=== PATIENT | female | born 1935 | race Caucasian/White ===

== ENCOUNTER 2019-07-17 16:17 | Inpatient (IN) | payer OTHER, MEDICAID ==
[~2019-07-17] VITALS: Ht 152.4 cm; Wt 41.7 kg
[2019-07-17 16:45] VITALS: BP_SYST 118
--- NOTE | 2019-07-17 16:45 | NUR ---
PATIENT TO ER #2 AND PLACED ON RACE CAR MECHANIC, SAO2, ABP
--- NOTE | 2019-07-17 17:00 | NUR ---
PT CAME TO ER AFTER CONCERNS OF HER NOT EATING, PT RESTING IN [place] ON MONITOR AT THIS TIME.
--- NOTE | 2019-07-17 17:10 | NUR ---
ER at bedside examining patient.
--- NOTE | 2019-07-17 17:20 | NUR ---
ERMD EVALUATION; ORDERS EXECUTED
[2019-07-17] MEDS ORDERED: NS 250 ML IV ONE (17:30)
[2019-07-17 18:18] LABS: BASOPHILS % (AUTO) 0.7 % (0.0-2.0); EOSINOPHILS # (AUTO) 0.1 K/uL (0.0-0.4); EOSINOPHILS % (AUTO) 2.1 % (0.0-4.0); HEMATOCRIT 38.4 % (36-48); HEMOGLOBIN 12.6 g/dL (12.0-16.0); LYMPHOCYTES # (AUTO) 1.2 K/uL (1.0-5.5); LYMPHOCYTES % (AUTO) 19.3 % (20.5-51.5); MEAN CORPUSCULAR HEMOGLOBIN 30 pg (27-31); MEAN CORPUSCULAR HGB CONC 33 % (32-36); MEAN CORPUSCULAR VOLUME 92 fL (79.0-98.0); MONOCYTES # (AUTO) 0.6 K/uL (0.0-1.0); MONOCYTES % (AUTO) 10.6 % (1.7-9.3); NEUTROPHILS # (AUTO) 4.1 K/uL (1.8-7.7); NEUTROPHILS % (AUTO) 67.3 % (40.0-70.0); PLATELET COUNT (AUTO) 341 K/uL (130-430); RED BLOOD CELL COUNT(AUTO) 4.18 MIL/uL (4.2-6.2); RED CELL DISTRIBUTION WIDTH 16.6 % (9.0-15.0); WHITE BLOOD COUNT (AUTO) 6.2 K/uL (4.8-10.8)
[2019-07-17 18:28] LABS: ANION GAP 8 (5-15); CALCIUM 8.8 mg/dL (8.4-11.0); CHLORIDE 101 mmol/L (98-107); CREATININE 0.57 mg/dL (0.55-1.30); GLUCOSE 96 mg/dL (70-99); POTASSIUM 3.8 mmol/L (3.5-5.1); SODIUM SERUM 138 mmol/L (136-145); UREA NITROGEN, BLOOD 18 mg/dL (8-21)
[2019-07-17 18:33] LABS: ALANINE AMINOTRANSFERASE 11 U/L (12-78); ALBUMIN 2.5 g/dL (3.4-4.8); ASPARTATE AMINOTRANSFERASE 18 U/L (10-37); TOTAL BILIRUBIN 0.4 mg/dL (0.0-1.0)
[2019-07-17 18:42] LABS: INR 1.1 (0.8-1.2); PROTHROMBIN TIME 10.8 SECS (9.5-12.5)
[2019-07-17] MEDS ORDERED: PIPERACILLIN/TAZO 3.375 GM in NS 50 ML IV ONE (19:00)
--- NOTE | 2019-07-17 19:35 | NUR ---
Pt lying on left side, alert, responsive, AAOx1. Respirations even and non-labored. Denies c/o pain or discomfort, no needs verbalized. Pt has 20 GA PIV LAC, patent and secure. On ekg monitor tech with VSSODALYS.
--- NOTE | 2019-07-17 20:00 | NUR ---
Dr. Andrea at bedside to assess pt.
[2019-07-17 20:17] LABS: BILIRUBIN,URINE 1+ (NEGATIVE); BLOOD, URINE 3+ (NEGATIVE); COLOR,URINE YELLOW (YELLOW); GLUCOSE,URINE NEGATIVE (NEGATIVE); KETONES,URINE NEGATIVE (NEGATIVE); LEUKOCYTE ESTERASE ,URINE 1+ (NEGATIVE); NITRITE, URINE NEGATIVE (NEGATIVE); PROTEIN URINE NEGATIVE (NEGATIVE)
[2019-07-17 20:19] LABS: CLARITY/URINE SLIGHTLY HAZY (CLEAR)
[2019-07-17 20:27] LABS: RBC,URINE 50-80 /HPF (0-3)
[2019-07-17 20:28] LABS: BACTERIA,URINE MODERATE /HPF (None Seen); MUCUS,URINE 3+ /LPF (None Seen)
[2019-07-17] MEDS ORDERED: cefTRIAXone 1 GM in D5W 50 ML IV ONE (21:30)
--- NOTE | 2019-07-17 21:30 | NUR ---
Pt resting quietly, even and non-labored respirations, NAD.
[2019-07-17] MEDS ORDERED: KCL 20 mEq in D5/0.45NS 1000mL 1,000 ML IV ONE ×2 (22:00→23:58)
[2019-07-17] MEDS ORDERED: cefTRIAXone 1 GM IVPB PREMIX 50 ML IV ONE (22:04)
[2019-07-17] MEDS ORDERED: PIPERACILLIN/TAZOBACTAM 3.375 GM/VIAL (ZOSYN) IV ONE (22:05)
--- NOTE | 2019-07-17 22:37 | NUR ---
Patient will be admitted to care of Dr. Oropeza. Admitted to Med/Surg unit. Will go to room 104B. Belongings list completed. Complete and up to date summary report printed. Phone report called to LAYA Carrington.
--- NOTE | 2019-07-17 22:51 | NUR ---
ADMISSION: The patient, TOR ECKERT, 83 y/o, F admitted by DEMETRICE NAGEL MD, was placed in room 104B, given call light and oriented to unit procedures and contact persons.
[2019-07-17 23:28] VITALS: BP_SYST 113
--- NOTE | 2019-07-17 23:44 | NUR ---
Dr. Oropeza rounds Dr. Oropeza is here to see patient and is placing orders.
[2019-07-17] MEDS ORDERED: ACETAMINOPHEN 325 MG TABLET PO PRN (23:45)
[2019-07-17] MEDS: KCL 20 mEq in D5/0.45NS 1000mL 1,000 ML IV SCH (23:59)
--- NOTE | 2019-07-18 00:12 | NUR ---
IVF IVF hung and infusing as ordered at 75 ml/hr; infusing well and patient tolerating.
[2019-07-18 01:22] VITALS: BP_SYST 112
--- NOTE | 2019-07-18 04:29 | NUR ---
RN rounds Patient is awake, resting calm and talking to self. No distress noted. She was repositioned and turned and was cooperative. IVF infusing well. Safety precautions in place and call light w/in reach.
[2019-07-18] MEDS ORDERED: FOLI0.8T42 PO (05:41)
[2019-07-18] MEDS ORDERED: MEMA10TA PO (05:41)
[2019-07-18] MEDS ORDERED: LACT10SO6 PO (05:41)
[2019-07-18] MEDS ORDERED: DONE10TA44 PO (05:41)
[2019-07-18] MEDS ORDERED: OSCD500 PO (05:41)
--- NOTE | 2019-07-18 06:30 | NUR ---
closing note Patient is awake and has pulled out her IV. She had a bowel movement and was provided with pericare, repositioned and turned. No distress noted. Safety precautions in place and call light near. Will endorse car.
--- NOTE | 2019-07-18 07:35 | NUR ---
Note valdezone in EDM - 07/18/19 at 0828 by ALAN Pt lying on left side, alert, responsive, AAOx1. Respirations even and non-labored. Denies c/o pain or discomfort, no needs verbalized. Pt has 20 GA PIV LAC, patent and secure. On personnel monitor with VSSNAD.
[2019-07-18 08:50] VITALS: BP_SYST 112
[2019-07-18] MEDS: CEFEPIME 1 GM in D5W 50 ML IV SCH ×2 (10:02→23:00)
[2019-07-18] MEDS: NEPHROVITE, (FOLIC ACID/VITAMIN B COMP W-C 1 TAB) PO SCH (10:03)
[2019-07-18] MEDS: CALCIUM CARBONATE/VITAMIN D3 1 TAB TABLET PO SCH (10:03)
[2019-07-18] MEDS: MEMANTINE HCL 5 MG TABLET PO SCH ×2 (10:03→23:00)
[2019-07-18] MEDS: ENOXAPARIN SODIUM 40 MG/0.4 ML SYRINGE SUBCUT SCH (10:04)
--- NOTE | 2019-07-18 11:10 | NUR ---
Nutrition Update Shiv Scale 14 noted. Pt admitted for FTT. Diet: regular, pureed BMI: 18.1 kg/m2 RD to follow per nutrition care standards.
[2019-07-18 12:31] VITALS: BP_SYST 115
[2019-07-18] MEDS: KCL 20 mEq in D5/0.45NS 1000mL 1,000 ML IV SCH (13:05)
[2019-07-18 17:30] VITALS: BP_SYST 118
[2019-07-18 20:30] VITALS: BP_SYST 143
--- NOTE | 2019-07-18 20:30 | NUR ---
Opening notes Pt awake, confused. VSS afebrile. No s/s distress noted. IVF infusing at ordered rate R. FA 22 no s/s infiltration. Virgil wrists restraints on. Call light within reach. Safety maintained. To monitored.
--- NOTE | 2019-07-18 22:45 | NUR ---
Rounds Pt awake, confused talking to herself. No s/s distress noted. IVF infusing at ordered rate R. FA no s/s infiltration. Safety maintained. Call light within reach. To monitor.
[2019-07-18] MEDS: DONEPEZIL HCL 5 MG TABLET (ARICEPT) PO SCH (23:00)
[2019-07-19 02:18] VITALS: BP_SYST 146
[2019-07-19] MEDS: KCL 20 mEq in D5/0.45NS 1000mL 1,000 ML IV SCH ×2 (02:25→17:37)
--- NOTE | 2019-07-19 02:30 | NUR ---
Rounds Pt awake, talking to herself, no s/s distress noted. IVF infusing at ordered rate R. FA 22 no s/s infiltration. Call light within reach. To monitor.
--- NOTE | 2019-07-19 05:20 | NUR ---
Pericare Pt incontinent of semi loose brown bowel. Pericare provided. Protective barrier cream applied to redness in periarea. Pt repositioned. Virgil wrists restraints off at this time. To monitor.
--- NOTE | 2019-07-19 06:30 | NUR ---
Closing notes Pt awake, no s/s distress noted. IVF infusing R. FA 22G no s/s distress noted. Virgil wrists restraints on. Call light within reach. Safety maintained. Bed low, locked, siderails up, alarm on. To endorse to AM nurse.
[2019-07-19 07:21] LABS: BASOPHILS % (AUTO) 1.2 % (0.0-2.0); EOSINOPHILS # (AUTO) 0.1 K/uL (0.0-0.4); EOSINOPHILS % (AUTO) 3.1 % (0.0-4.0); HEMATOCRIT 33.5 % (36-48); LYMPHOCYTES # (AUTO) 1.3 K/uL (1.0-5.5); LYMPHOCYTES % (AUTO) 33.5 % (20.5-51.5); MEAN CORPUSCULAR HEMOGLOBIN 30 pg (27-31); MEAN CORPUSCULAR HGB CONC 33 % (32-36); MEAN CORPUSCULAR VOLUME 92 fL (79.0-98.0); MONOCYTES # (AUTO) 0.6 K/uL (0.0-1.0); MONOCYTES % (AUTO) 15.5 % (1.7-9.3); NEUTROPHILS # (AUTO) 1.7 K/uL (1.8-7.7); PLATELET COUNT (AUTO) 323 K/uL (130-430); RED BLOOD CELL COUNT(AUTO) 3.65 MIL/uL (4.2-6.2); RED CELL DISTRIBUTION WIDTH 16.1 % (9.0-15.0); WHITE BLOOD COUNT (AUTO) 3.7 K/uL (4.8-10.8)
[2019-07-19 07:30] LABS: ANION GAP 8 (5-15); CALCIUM 8.7 mg/dL (8.4-11.0); CHLORIDE 98 mmol/L (98-107); CREATININE 0.47 mg/dL (0.55-1.30); GLUCOSE 87 mg/dL (70-99); POTASSIUM 3.3 mmol/L (3.5-5.1); SODIUM SERUM 132 mmol/L (136-145); UREA NITROGEN, BLOOD 9 mg/dL (8-21)
[2019-07-19 08:00] VITALS: BP_SYST 148
--- NOTE | 2019-07-19 08:00 | NUR ---
Note Pt asleep and has wrist restraints on bilaterally. IV in right forearm intact and patent infusing IVF's well. Pt is a feeder of pureed diet. No SOB/resp distress or pain/discomfort noted at this time. Call light within reach.
[2019-07-19] MEDS: NEPHROVITE, (FOLIC ACID/VITAMIN B COMP W-C 1 TAB) PO SCH (08:31)
[2019-07-19] MEDS: CALCIUM CARBONATE/VITAMIN D3 1 TAB TABLET PO SCH (08:31)
[2019-07-19] MEDS: MEMANTINE HCL 5 MG TABLET PO SCH ×2 (08:31→22:04)
[2019-07-19] MEDS: CEFEPIME 1 GM in D5W 50 ML IV SCH ×2 (08:31→22:05)
[2019-07-19] MEDS: ENOXAPARIN SODIUM 40 MG/0.4 ML SYRINGE SUBCUT SCH (08:32)
--- NOTE | 2019-07-19 08:58 | NUR ---
DC Planning: Updated pt status to [facility] /[place] Ker[place] this am # [phone]: stated the pt does not have any family but one friend. All contact or other request should be reported to him for decision/authorization. He requested a notification when transferring pt back to [facility].
[2019-07-19 09:08] LABS: NEUTROPHILS % (AUTO) 46.7 % (40.0-70.0)
[2019-07-19 12:00] VITALS: BP_SYST 138
--- NOTE | 2019-07-19 12:00 | NUR ---
Note Pt resting in bed and has no needs at this time. Pt only awakens when she is fed her meals by LICENSED MORTICIAN. No needs noted at this time. Call light within reach.
--- NOTE | 2019-07-19 16:00 | NUR ---
Note Pt was given meals and turned q2' by LIEUTENANT FIREFIGHTER all shift. Hygiene and partial bed bath was given by LIEUTENANT FIREFIGHTER. Call light within reach.
--- NOTE | 2019-07-19 16:27 | NUR ---
Dietitian Recommendations * Recommend continuing pureed diet (ONS Ensure Enlive TID comes standard w/ this diet; provides 1050 kcal/day, 60 gm protein/day) * Encourage increase PO intakes LP, RD Please refer to Nutrition Assessment for details. Addendum: 07/19/19 at [address] Amended: Links added.
[2019-07-19 16:37] VITALS: BP_SYST 135
--- NOTE | 2019-07-19 17:10 | NUR ---
Kikr mullins in ED - 07/19/19 at 1911 by SDEDDW TIERRA Rose at bedside examining patient.
--- NOTE | 2019-07-19 18:30 | NUR ---
Note Pt was seen and assessed by Dr Oropeza at bedside. Pt was fed her dinner by TALENT MANAGEMENT SPECIALIST this evening. No SOB/resp distress or pain/discomfort noted at this time. Pt was checked on q1' and PRN all shift for needs and care. Pt's restraints are on bilaterally. IV in right forearm intact and patent infusing IVF's well. No needs noted at this time. Call light within reach.
--- NOTE | 2019-07-19 19:40 | NUR ---
RECEIVED REPORT FROM 7 AM RN. PT IN BED ASLEEP IN NAD, EASILY AROUSAL TO TOUCH. IVF INFUSING, CLOSE TO NURSES STATION.
[2019-07-19 20:00] VITALS: BP_SYST 135
[2019-07-19] MEDS: DONEPEZIL HCL 5 MG TABLET (ARICEPT) PO SCH (22:04)
--- NOTE | 2019-07-19 23:00 | NUR ---
MED PASS DONE, W/ HOB UP AT 45 DEGREES, PT TOLERATED PO MEDS WELL CRUSHED AND GIVEN W/ VANILLA PUDDING. LAYING IN BED PULLING ON CLOTHES WITH EYES CLOSED. RESTRAINTS IN USE A SAFETY DEVICE. WILL CONT TO MONITOR.
[2019-07-20 00:04] VITALS: BP_SYST 123
--- NOTE | 2019-07-20 03:00 | NUR ---
PATIENT MONITORED ON ROUNDS FOR SAFETY. RUSS CARE DONE. COMFORT MEASURES USED, SAFETY ASSESSED AND MAINTAINED. WILL CONT TO MONITOR FOR CHANGES/ SAFETY.
--- NOTE | 2019-07-20 06:30 | NUR ---
AM MED PASS DONE. PT EASY TO AROUSE, NO S/S OF DISTRESS NOTED. TOLERATED AM CARE, AND PARTIAL BATH WELL W/ ASSIST OF TWO. REPOSITIONED, MADE COMFORTABLE.
--- NOTE | 2019-07-20 07:45 | NUR ---
REPORT TO ONCOMING 7 AM RN. PT ASLEEP, NAD NOTED.
[2019-07-20 08:00] VITALS: BP_SYST 138
[2019-07-20] MEDS: ENOXAPARIN SODIUM 40 MG/0.4 ML SYRINGE SUBCUT SCH (09:00)
[2019-07-20] MEDS: CALCIUM CARBONATE/VITAMIN D3 1 TAB TABLET PO SCH (11:03)
[2019-07-20] MEDS: NEPHROVITE, (FOLIC ACID/VITAMIN B COMP W-C 1 TAB) PO SCH (11:03)
[2019-07-20] MEDS: MEMANTINE HCL 5 MG TABLET PO SCH ×2 (11:05→22:20)
[2019-07-20] MEDS: KCL 20 mEq in D5/0.45NS 1000mL 1,000 ML IV SCH (11:09)
[2019-07-20] MEDS: CEFEPIME 1 GM in D5W 50 ML IV SCH ×2 (11:10→22:20)
[2019-07-20 12:15] VITALS: BP_SYST 122
[2019-07-20 16:10] VITALS: BP_SYST 133
--- NOTE | 2019-07-20 19:35 | NUR ---
Pt was received in bed fully awake and oriented to her name only. No c/o pain or discomfort and no acute distress noted. IVF of D5 1/2NS W/ 20Meq KCL is infusing well in RFA at 75ml/hr without any signs of infiltration. Bilateral soft wrist restraints are on and no circulatory impairment noted. Fall and safety precautions are in place.
[2019-07-20 20:00] VITALS: BP_SYST 110
--- NOTE | 2019-07-20 21:30 | NUR ---
No acute distress noted. IVF is infusing well in RFA. Fall and safety precautions are in place.
[2019-07-20] MEDS: DONEPEZIL HCL 5 MG TABLET (ARICEPT) PO SCH (22:21)
--- NOTE | 2019-07-20 23:00 | NUR ---
Pt remains confused and disoriented. IVF is infusing well in RFA. Bilateral soft wrist restraints are in place and no circulatory impairment noted.
[2019-07-20 23:35] VITALS: BP_SYST 117
--- NOTE | 2019-07-21 01:00 | NUR ---
Pt is sleeping without any respiratory distress noted. IVF is infusing well in RFA. Fall and safety precautions are in place.
[2019-07-21] MEDS: KCL 20 mEq in D5/0.45NS 1000mL 1,000 ML IV SCH ×2 (02:28→11:30)
--- NOTE | 2019-07-21 03:00 | NUR ---
Pt is resting without any distress noted. Fall and safety precautions are in place. IVF is infusing well in RFA.
--- NOTE | 2019-07-21 05:00 | NUR ---
Pt is resting comfortably in bed. IVF is infusing well in RFA and no signs of infiltration noted at the site. Fall and safety precautions are in place.
[2019-07-21 07:13] LABS: BASOPHILS % (AUTO) 0.8 % (0.0-2.0); EOSINOPHILS # (AUTO) 0.1 K/uL (0.0-0.4); EOSINOPHILS % (AUTO) 3.6 % (0.0-4.0); HEMATOCRIT 34.9 % (36-48); HEMOGLOBIN 11.5 g/dL (12.0-16.0); MEAN CORPUSCULAR HEMOGLOBIN 30 pg (27-31); MEAN CORPUSCULAR HGB CONC 33 % (32-36); MEAN CORPUSCULAR VOLUME 92 fL (79.0-98.0); MONOCYTES # (AUTO) 0.6 K/uL (0.0-1.0); MONOCYTES % (AUTO) 15.9 % (1.7-9.3); NEUTROPHILS # (AUTO) 2.1 K/uL (1.8-7.7); NEUTROPHILS % (AUTO) 53.7 % (40.0-70.0); PLATELET COUNT (AUTO) 314 K/uL (130-430); RED CELL DISTRIBUTION WIDTH 16.3 % (9.0-15.0); WHITE BLOOD COUNT (AUTO) 3.9 K/uL (4.8-10.8)
[2019-07-21 07:30] LABS: ANION GAP 5 (5-15); CALCIUM 8.7 mg/dL (8.4-11.0); CHLORIDE 101 mmol/L (98-107); CREATININE 0.46 mg/dL (0.55-1.30); GLUCOSE 88 mg/dL (70-99); POTASSIUM 3.8 mmol/L (3.5-5.1); SODIUM SERUM 137 mmol/L (136-145); UREA NITROGEN, BLOOD 8 mg/dL (8-21)
--- NOTE | 2019-07-21 07:30 | NUR ---
OPENING NOTES: RECEIVED PATIENT FROM TILE MECHANIC NURSE. PATIENT IS ASLEEP LAYING DOWN IN BED. PATIENT IS TOLERATING OXYGEN ON ROOM AIR WITH NO SIGNS OF DISTRESS OR SHORTNESS OF BREATH NOTED. PATIENT IS ON BILATERAL SOFT WRIST RESTRAINTS DUE TO PATIENT BEING CONFUSED AND ATTEMPTING TO SCRATCH AND HIT. NO SIGNS OF DECREASED CIRCULATION NOTED. IV SITE IS PATENT WITH NO SIGNS OF INFILTRATION AND RUNNING FLUIDS ORDERED. PATIENT IN STABLE CONDITION. SAFETY, FALL, AND ASPIRATION PRECAUTIONS ARE IN PLACE. BED LOCKED IN LOWEST POSITION WITH CALL LIGHT IN REACH. WILL CONTINUE TO MONITOR PATIENT FOR ANY CHANGES.
[2019-07-21 08:00] VITALS: BP_SYST 128
[2019-07-21] MEDS: CEFEPIME 1 GM in D5W 50 ML IV SCH ×2 (08:40→19:57)
[2019-07-21] MEDS: CALCIUM CARBONATE/VITAMIN D3 1 TAB TABLET PO SCH (08:41)
[2019-07-21] MEDS: ENOXAPARIN SODIUM 40 MG/0.4 ML SYRINGE SUBCUT SCH (08:41)
[2019-07-21] MEDS: NEPHROVITE, (FOLIC ACID/VITAMIN B COMP W-C 1 TAB) PO SCH (08:41)
[2019-07-21] MEDS: MEMANTINE HCL 5 MG TABLET PO SCH ×2 (08:41→19:57)
--- NOTE | 2019-07-21 10:10 | NUR ---
RN ROUNDS: PATIENT IS AWAKE LAYING DOWN IN BED. PATIENT DENIES ANY PAIN AT THE MOMENT. PATIENT IS ON BILATERAL SOFT WRIST RESTRAINTS WITH NO SIGNS OF DECREASED CIRCULATION NOTED. PATIENT IN STABLE CONDITION. WILL CONTINUE TO MONITOR PATIENT FOR ANY CHANGES.
--- NOTE | 2019-07-21 12:03 | NUR ---
RN ROUNDS: PATIENT IS AWAKE AND CONFUSED LAYING DOWN IN BED. PATIENT IS ON BILATERAL SOFT WRIST RESTRAINTS DUE TO PATIENT BEING CONFUSED AND SCRATCHING. NO SIGNS OF DECREASED CIRCULATION NOTED. PATIENT IN STABLE CONDITION. WILL CONTINUE TO MONITOR PATIENT FOR ANY CHANGES.
[2019-07-21 12:15] VITALS: BP_SYST 101
--- NOTE | 2019-07-21 14:20 | NUR ---
RN ROUNDS: PATIENT IS AWAKE, CONFUSED AND TALKING TO HERSELF WHILE LAYING DOWN IN BED. PATIENT IS ON BILATERAL SOFT WRIST RESTRAINTS DUE TO PATIENT BEING CONFUSED AND SCRATCHING. NO SIGNS OF DECREASED CIRCULATION NOTED. PATIENT IN STABLE CONDITION. WILL CONTINUE TO MONITOR PATIENT FOR ANY CHANGES.
[2019-07-21 16:13] VITALS: BP_SYST 108
--- NOTE | 2019-07-21 18:29 | NUR ---
CLOSING NOTES: PATIENT IS AWAKE AND ALERT x1 LAYING DOWN IN BED TALKING TO HERSELF. PATIENT IS TOLERATING OXYGEN ON ROOM AIR WITH NO SIGNS OF DISTRESS OR SHORTNESS OF BREATH NOTED. PATIENT IS ON BILATERAL SOFT WRIST RESTRAINTS DUE TO PATIENT BEING CONFUSED AND ATTEMPTING TO SCRATCH AND HIT. NO SIGNS OF DECREASED CIRCULATION NOTED. IV SITE IS PATENT WITH NO SIGNS OF INFILTRATION AND RUNNING FLUIDS ORDERED. PATIENT IN STABLE CONDITION. SAFETY, FALL, AND ASPIRATION PRECAUTIONS REMAINED IN PLACE THROUGHOUT THE SHIFT. BED LOCKED IN LOWEST POSITION WITH CALL LIGHT IN REACH. WILL ENDORSE PATIENT CARE TO ONCOMING ROLLER REPAIRER NURSE.
--- NOTE | 2019-07-21 19:27 | NUR ---
OPENING NOTE PATIENT IS AWAKE AND ALERT x1 LAYING DOWN IN BED TALKING TO HERSELF. PATIENT IS TOLERATING OXYGEN ON ROOM AIR WITH NO SIGNS OF DISTRESS OR SHORTNESS OF BREATH NOTED. PATIENT IS ON BILATERAL SOFT WRIST RESTRAINTS DUE TO PATIENT BEING CONFUSED. NO SIGNS OF DECREASED CIRCULATION NOTED, SKIN IS INTACT AT RESTRAINT SITE. IV SITE IS PATENT WITH NO SIGNS OF INFILTRATION AND RUNNING FLUIDS ORDERED. PATIENT IN STABLE CONDITION. SAFETY, FALL, AND ASPIRATION PRECAUTIONS IN PLACE. BED LOCKED IN LOWEST POSITION WITH CALL LIGHT IN REACH. CLOSE TO NURSING STATION. WILL MONITOR.
[2019-07-21] MEDS: DONEPEZIL HCL 5 MG TABLET (ARICEPT) PO SCH (19:57)
[2019-07-21 20:00] VITALS: BP_SYST 110
--- NOTE | 2019-07-21 20:15 | NUR ---
MEDICATION/INCONTINENCE CARE PT GIVEN NAMENDA AND ARICEPT CRUSHED WITH APPLE SAUCE. PT COOPERATIVE IN TAKING MEDICATION AT THIS TIME. SCHEDULED MAXIPIME HUNG IVPB ORDERED. NO S/S ADVERSE REACTION NOTED. PT INCONTINENT OF BOWELS. INCONTINENCE CARE RENDERED AND PT TOLERATED WELL AT THIS TIME. SAFETY PRECAUTION MAINTAINED. BILATERAL SOFT WRIST RESTRAINTS ARE IN PLACED. WILL MONITOR.
--- NOTE | 2019-07-21 22:16 | NUR ---
RN ROUNDS PATIENT IS AWAKE, CONFUSED AND TALKING TO HERSELF WHILE LAYING DOWN IN BED. PATIENT IS ON BILATERAL SOFT WRIST RESTRAINTS DUE TO PATIENT BEING CONFUSED AND SCRATCHING HERSELF. NO SIGNS OF DECREASED CIRCULATION NOTED. PATIENT IN STABLE CONDITION. WILL CONTINUE TO MONITOR.
[2019-07-21 23:26] VITALS: BP_SYST 121
--- NOTE | 2019-07-22 00:11 | NUR ---
INCONTINENCE CARE PT INCONTINENT OF URINE AND BOWELS. INCONTINENCE CARE RENDERED AND PT TOLERATED WELL AT THIS TIME. SAFETY PRECAUTION MAINTAINED. BED LOCKED AND ALARMED AT THE LOWEST LEVEL. BILATERAL SOFT WRIST RESTRAINTS ARE IN PLACED. WILL MONITOR.
[2019-07-22] MEDS: KCL 20 mEq in D5/0.45NS 1000mL 1,000 ML IV SCH (01:22)
--- NOTE | 2019-07-22 02:11 | NUR ---
patient noticed a red skin in color on the left side of her chin rn incharged to the patient aware
--- NOTE | 2019-07-22 02:12 | NUR ---
RESTLESS PATIENT IS AWAKE, CONFUSED AND TALKING TO HERSELF WHILE LAYING DOWN IN BED. PATIENT IS ON BILATERAL SOFT WRIST RESTRAINTS DUE TO PATIENT BEING CONFUSED AND SCRATCHING HERSELF. NO SIGNS OF DECREASED CIRCULATION NOTED. PATIENT IN STABLE CONDITION. SAFETY MAINTAINED. WILL MONITOR.
--- NOTE | 2019-07-22 04:00 | NUR ---
INCONTINENCE CARE PT INCONTINENT OF URINE AND BOWELS. INCONTINENCE CARE RENDERED. PT YELLING AND AGITATED. SAFETY PRECAUTION MAINTAINED. BED LOCKED AND ALARMED AT THE LOWEST LEVEL. BILATERAL SOFT WRIST RESTRAINTS ARE IN PLACED. WILL MONITOR.
--- NOTE | 2019-07-22 05:42 | NUR ---
IV RE-INSERTION: IV Leaking. Restarted on Left forearm. Successful after multiple attempts.Resumed current IVF and regulated to ordered rate. Will observe for any signs of infiltration.
--- NOTE | 2019-07-22 06:24 | NUR ---
CLOSING NOTES. PATIENT IS AWAKE AND ALERT x1 LAYING DOWN IN BED YELLING, AGITATED, AND RESTLESS. PATIENT IS TOLERATING OXYGEN ON ROOM AIR WITH NO SIGNS OF DISTRESS OR SHORTNESS OF BREATH NOTED. PATIENT IS ON BILATERAL SOFT WRIST RESTRAINTS DUE TO PATIENT BEING CONFUSED. NO SIGNS OF DECREASED CIRCULATION NOTED, SKIN IS INTACT AT RESTRAINT SITE. IV SITE IS PATENT WITH NO SIGNS OF INFILTRATION AND RUNNING FLUIDS ORDERED. PATIENT IN STABLE CONDITION. SAFETY, FALL, AND ASPIRATION PRECAUTIONS IN PLACE. BED LOCKED IN LOWEST POSITION WITH CALL LIGHT IN REACH. CLOSE TO NURSING STATION. WILL CONTINUE TO MONITOR UNTIL PT CARE ENDORSE TO DAY SHIFT RN.
[2019-07-22 08:00] VITALS: BP_SYST 132
--- NOTE | 2019-07-22 08:00 | NUR ---
Opening note patient resting in bed, awake, confused, talking but unable to discern meaning, no signs of pain, assessment complete, IV line is patent and infusing well, restraints in place, no signs of injury or skin breakdown, continuing to monitor, bed in lowest position, three side rails up, bed alarm on, bed close to nursing station, fall and aspiration precautions in place.
[2019-07-22] MEDS: MEMANTINE HCL 5 MG TABLET PO SCH (08:55)
[2019-07-22] MEDS: CEFEPIME 1 GM in D5W 50 ML IV SCH (08:55)
[2019-07-22] MEDS: CALCIUM CARBONATE/VITAMIN D3 1 TAB TABLET PO SCH (08:55)
[2019-07-22] MEDS: NEPHROVITE, (FOLIC ACID/VITAMIN B COMP W-C 1 TAB) PO SCH (08:55)
[2019-07-22] MEDS: ENOXAPARIN SODIUM 40 MG/0.4 ML SYRINGE SUBCUT SCH (08:56)
--- NOTE | 2019-07-22 09:00 | NUR ---
Medication patient resting in bed, cleaned turned and repositioned the patient, IV line is infiltrated, will follow up with insertion, crushed and administered medications per MD orders, crushed medications with applesauce, patient tolerated well, aspiration precautions in place, continuing to monitor, bed in lowest position, three side rails up, bed alarm on, bed close to nursing station, fall precautions also in place, restraints in place.
--- NOTE | 2019-07-22 11:36 | NUR ---
Discharge Planning: DCP faxed to referral to [facility] (f [phone] p [phone]) DCP to follow up Addendum: 07/22/19 at 1609 by Denia Lr DP DCP spoke to Leslye at [facility] (f [phone] p [phone]) call when patient has a discharge order.
--- NOTE | 2019-07-22 11:52 | NUR ---
Nutrition F/U RD reviewed pt's current EMR including diet Hx, physician notes, nursing notes, pertinent labs/meds/procedures, care trends and care activity. Current Diet Order: Pureed diet x 4 days Subjective information: Pt referred by charge out clerk during huddles because of reports of FTT 2/2 poor PO intakes. Pt seen in bed this morning, confused. Per OPS ANALYST report, pt ate 75% of breakfast, did not show signs of aspiration of any difficulty swallowing. Per RN, pt did not have any difficulty swallowing meds mixed in apple sauce this AM. Per EMR, PO intake averaging 61% in 3 days. MVI (nephrovite) taken daily. Pt may benefit from Megace to stimulate appetite. No pressure injury noted. Labs: 07/20 Na 137WNL, K 3.8WNL, BG 88WNL, BUN 8WNL, CRE 0.46L Current % PO 61% average x3 days Estimated Energy Expenditure (kcal/day) 0193-0634 kcal/day (30-35 kcal/kg CBW for wt gain promotion) Estimated Protein Required (g/day) 50-63 gm/day (1.5-2 gm/kg CBW for wt gain promotion) Estimated Fluid Required (l/day) 1-1.3 L/day (25-30 ml/kg CBW for geriatric maintenance) Problem/Etiology/Signs/Symptoms Suboptimal nutritional intakes related to possible lack of appetite associated w/ geriatric age as evidenced by poor PO intake records. (*improving) Expected Outcomes/Goals - Monitor appetite and PO intakes w/ goal of pt meeting at least 70% of estimated nutritional needs, labs trending WNL, normal GI function, and skin integrity/wt maintenance Dietitian Recommendations * Recommend continuing pureed diet (ONS Ensure Enlive TID comes standard w/ this diet; provides 1050 kcal/day, 60 gm protein/day) * Consider adding Megace to stimulate appetite. * Encourage increase PO intakes Follow Up High Risk: F/U in 2-3days
--- NOTE | 2019-07-22 11:57 | NUR ---
Dietitian Recommendations * Recommend continuing pureed diet (ONS Ensure Enlive TID comes standard w/ this diet; provides 1050 kcal/day, 60 gm protein/day) * Consider adding Megace to stimulate appetite. * Encourage increase PO intakes Please see Nutrition F/U note for details.
[2019-07-22 12:00] VITALS: BP_SYST 132
--- NOTE | 2019-07-22 12:28 | NUR ---
IV Re-Insertion/Rounds Restarted on right forearm 20G . Successful after 3 attempts. Resumed current IVF of D5 1/2 NS + 20KCl and regulated @ 75 per hour. Will observe for any signs of infiltration. Patient is restless when restraints are removed, no signs of injury or skin breakdown, continuing to monitor, bed in lowest position, three side rails up, bed alarm on, bed close to nursing station, fall and aspiration precautions in place.
--- NOTE | 2019-07-22 14:05 | NUR ---
RN rounds patient resting in bed, restless, no signs of distress, restraints in place, no signs of injury or skin breakdown, continuing to monitor, IV line is patent and infusing well, bed in lowest position, three side rails up, bed alarm on, bed close to nursing station, fall and aspiration precautions in place.
--- NOTE | 2019-07-22 16:05 | NUR ---
RN rounds patient resting in bed, restless, no signs of distress, restraints in place, no signs of injury or skin breakdown, continuing to monitor, IV line is patent and infusing well, bed in lowest position, three side rails up, bed alarm on, bed close to nursing station, fall and aspiration precautions in place. Order received from MD for restraints.
[2019-07-22 16:31] VITALS: BP_SYST 99
--- NOTE | 2019-07-22 18:20 | NUR ---
Closing note/D/C restraints/Dr. Oropeza rounds patient resting in bed, awake, restless, Dr. Oropeza rounded and said to D/C the restraints, D/C'd restraints at this time, stated to send the patient back to SNF tonight, will endorse to NOC shift nurse, bed in lowest position, three side rails up, bed alarm on, bed close to nursing station, fall and aspiration precautions in place, all other needs met.
--- NOTE | 2019-07-22 19:13 | NUR ---
[facility]: ARRANGED A TRANSFER @ 2100 PATIENT IS GOING TO [facility]
--- NOTE | 2019-07-22 19:20 | NUR ---
Opening Note Received patient resting in bed, eyes open. No s/sx of distress. IVF infusing via IV to RFA. Side rails up 3x, bed is locked in lowest position, bed alarm on and call light near.
[2019-07-22 20:44] VITALS: BP_SYST 128
--- NOTE | 2019-07-22 20:48 | NUR ---
Called to give report S/w Elenita and she said, before she gets report, she needs to notify Leslye that patient is returning, she was not aware of patient transferring back tonight.
--- NOTE | 2019-07-22 20:50 | NUR ---
Report to ambulance SBAR report given to BIJAN Arroyo from [facility]
--- NOTE | 2019-07-22 20:58 | NUR ---
Report to [facility] Called to give report to [facility] [phone]; s/w LAYA Kwong.
--- NOTE | 2019-07-22 21:05 | NUR ---
Notified Mariana Madsen of transfer Called Mariana Madsen of transfer, . I called twice and got a voice mail. I left message on Voice mail "Melissa Brandt will transfer to [facility]".
--- NOTE | 2019-07-22 21:20 | NUR ---
Discharge Patient's record; medication reconciliation form and D/C instructions, Exit Care provided in packet and given to ambulance staff. discussed with patient the results and treatment provided. [facility]. Patient in stable condition, ID band removed. IV catheter removed, intact and dressing applied, no active bleeding. All belongings sent with patient.
== END 2019-07-22 21:20 | DRG 70 ==
LOC: SED 16:17 → SMU 22:00
PROVIDERS: ADMIT Family Medicine; ATTEND Family Medicine
DX: G93.41 Metabolic encephalopathy (principal); E43 Unspecified severe protein-calorie malnutrition; N39.0 Urinary tract infection, site not specified; Z68.1 Body mass index [BMI] 19.9 or less, adult; E86.0 Dehydration; F03.90 Unspecified dementia, unspecified severity, without behavioral disturbance, psychotic disturbance, mood disturbance, and anxiety; I10 Essential (primary) hypertension; E78.5 Hyperlipidemia, unspecified; R62.7 Adult failure to thrive; Z88.5 Allergy status to narcotic agent; Z88.1 Allergy status to other antibiotic agents; Z88.2 Allergy status to sulfonamides; Z79.899 Other long term (current) drug therapy
CPT/HCPCS: 36415; 71045; 80048; 80053; 81000-TC; 83605; 83735-TC; 84484; 85025; 85610-TC; 85730-TC; 87040-TC; 87081; 87086; 93005; 96365; 96368; 99285; J0692; J0696; J1650; J2543; J7060

== ENCOUNTER 2020-02-10 09:31 | Inpatient (IN) | payer OTHER, MEDICAID, SELFPAY ==
[~2020-02-10] VITALS: Ht 167.6 cm; Wt 41.7 kg
[~2020-02-10 09:31] MED LIST: DONE10TA44 PO; FOLI0.8T42 PO; LACT10SO6 PO; MEMA10TA PO; OSCD500 PO
[2020-02-10 09:44] VITALS: BP_SYST 106
[2020-02-10] MEDS ORDERED: NACL 0.9% 1,000 ML IV ONE (10:00)
[2020-02-10] MEDS ORDERED: PANTOPRAZOLE SODIUM 40 MG/VIAL (PROTONIX) IVP ONE (10:00)
[2020-02-10 10:48] LABS: BASOPHILS % (AUTO) 0.4 % (0.0-2.0); EOSINOPHILS % (AUTO) 0.2 % (0.0-4.0); HEMATOCRIT 29.5 % (36-48); HEMOGLOBIN 9.8 g/dL (12.0-16.0); LYMPHOCYTES # (AUTO) 1.2 K/uL (1.0-5.5); LYMPHOCYTES % (AUTO) 11.3 % (20.5-51.5); MEAN CORPUSCULAR HEMOGLOBIN 30 pg (27-31); MEAN CORPUSCULAR HGB CONC 33 % (32-36); MEAN CORPUSCULAR VOLUME 89 fL (79.0-98.0); NEUTROPHILS # (AUTO) 8.1 K/uL (1.8-7.7); NEUTROPHILS % (AUTO) 78.1 % (40.0-70.0); PLATELET COUNT (AUTO) 555 K/uL (130-430); WHITE BLOOD COUNT (AUTO) 10.4 K/uL (4.8-10.8)
[2020-02-10 10:58] LABS: ANION GAP 9 (5-15); CALCIUM 9.2 mg/dL (8.4-11.0); CHLORIDE 105 mmol/L (98-107); CREATININE 0.48 mg/dL (0.55-1.30); GLUCOSE 115 mg/dL (70-99); POTASSIUM 4.2 mmol/L (3.5-5.1); SODIUM SERUM 142 mmol/L (136-145); UREA NITROGEN, BLOOD 34 mg/dL (8-21)
[2020-02-10 11:04] LABS: ALANINE AMINOTRANSFERASE 11 U/L (12-78); ALBUMIN 2.8 g/dL (3.4-4.8); ASPARTATE AMINOTRANSFERASE 8 U/L (10-37); TOTAL BILIRUBIN 0.3 mg/dL (0.0-1.0)
[2020-02-10] MEDS: D5/0.45 NS 1,000 ML IV SCH (14:10)
[2020-02-10 14:22] VITALS: BP_SYST 119
[2020-02-10] MEDS ORDERED: ONDANSETRON HCL 4 MG/2 ML VIAL IVP PRN (14:45)
[2020-02-10 20:05] VITALS: BP_SYST 111
[2020-02-10] MEDS: DONEPEZIL HCL 5 MG TABLET (ARICEPT) PO SCH (22:00)
[2020-02-10] MEDS: MEMANTINE HCL 5 MG TABLET PO SCH (22:00)
[2020-02-10] MEDS: PANTOPRAZOLE SODIUM 40 MG/VIAL (PROTONIX) IVP SCH (22:00)
[2020-02-10] MEDS: LACTULOSE 20 GM/30 ML UDC PO SCH (22:00)
[2020-02-11 00:41] VITALS: BP_SYST 106
[2020-02-11] MEDS: D5/0.45 NS 1,000 ML IV SCH ×2 (01:29→14:16)
[2020-02-11 07:13] LABS: BASOPHILS % (AUTO) 0.7 % (0.0-2.0); EOSINOPHILS # (AUTO) 0.1 K/uL (0.0-0.4); HEMATOCRIT 22.5 % (36-48); HEMOGLOBIN 7.4 g/dL (12.0-16.0); LYMPHOCYTES # (AUTO) 1.4 K/uL (1.0-5.5); LYMPHOCYTES % (AUTO) 31.8 % (20.5-51.5); MEAN CORPUSCULAR HEMOGLOBIN 30 pg (27-31); MEAN CORPUSCULAR HGB CONC 33 % (32-36); MEAN CORPUSCULAR VOLUME 90 fL (79.0-98.0); MONOCYTES # (AUTO) 0.5 K/uL (0.0-1.0); MONOCYTES % (AUTO) 10.9 % (1.7-9.3); NEUTROPHILS # (AUTO) 2.4 K/uL (1.8-7.7); NEUTROPHILS % (AUTO) 54.6 % (40.0-70.0); PLATELET COUNT (AUTO) 350 K/uL (130-430); RED BLOOD CELL COUNT(AUTO) 2.49 MIL/uL (4.2-6.2); RED CELL DISTRIBUTION WIDTH 14.6 % (9.0-15.0); WHITE BLOOD COUNT (AUTO) 4.4 K/uL (4.8-10.8)
[2020-02-11 07:31] LABS: ANION GAP 9 (5-15); CALCIUM 8.2 mg/dL (8.4-11.0); CHLORIDE 108 mmol/L (98-107); CREATININE 0.35 mg/dL (0.55-1.30); GLUCOSE 80 mg/dL (70-99); PHOSPHORUS 2.7 mg/dL (2.7-4.5); POTASSIUM 3.8 mmol/L (3.5-5.1); SODIUM SERUM 140 mmol/L (136-145); UREA NITROGEN, BLOOD 18 mg/dL (8-21)
[2020-02-11 07:42] LABS: INR 1.1 (0.8-1.2)
[2020-02-11 08:03] VITALS: BP_SYST 109
[2020-02-11] MEDS: CALCIUM CARBONATE/VITAMIN D3 1 TAB TABLET PO SCH (08:17)
[2020-02-11] MEDS: LACTULOSE 20 GM/30 ML UDC PO SCH ×2 (08:17→21:13)
[2020-02-11] MEDS: NEPHROVITE, (FOLIC ACID/VITAMIN B COMP W-C 1 TAB) PO SCH (08:17)
[2020-02-11] MEDS: MEMANTINE HCL 5 MG TABLET PO SCH ×2 (08:18→21:14)
[2020-02-11] MEDS: PANTOPRAZOLE SODIUM 40 MG/VIAL (PROTONIX) IVP SCH ×2 (08:21→21:14)
[2020-02-11 12:38] VITALS: BP_SYST 115
[2020-02-11 13:51] LABS: BILIRUBIN,URINE NEGATIVE (NEGATIVE); BLOOD, URINE 3+ (NEGATIVE); CLARITY/URINE CLEAR (CLEAR); COLOR,URINE YELLOW (YELLOW); GLUCOSE,URINE NEGATIVE (NEGATIVE); KETONES,URINE NEGATIVE (NEGATIVE); LEUKOCYTE ESTERASE ,URINE NEGATIVE (NEGATIVE); NITRITE, URINE NEGATIVE (NEGATIVE); PH,URINE 6.5 (5.0-8.0); PROTEIN URINE NEGATIVE (NEGATIVE); UROBILINOGEN,URINE 0.2 (0.2-1.0)
[2020-02-11 14:17] LABS: BACTERIA,URINE None Seen /HPF (None Seen); RBC,URINE 20-50 /HPF (0-3); WBC,URINE 0-3 /HPF (0-3)
[2020-02-11 17:06] VITALS: BP_SYST 114
[2020-02-11 20:50] VITALS: BP_SYST 102
[2020-02-11] MEDS: DONEPEZIL HCL 5 MG TABLET (ARICEPT) PO SCH (21:14)
[2020-02-12] VITALS (8 sets, daily range): BP systolic 110–127
[2020-02-12] MEDS: D5/0.45 NS 1,000 ML IV SCH (04:40)
[2020-02-12 06:35] LABS: ANION GAP 6 (5-15); CALCIUM 8.1 mg/dL (8.4-11.0); CHLORIDE 102 mmol/L (98-107); CREATININE 0.44 mg/dL (0.55-1.30); GLUCOSE 82 mg/dL (70-99); LIPASE 72 U/L (73-393); POTASSIUM 3.1 mmol/L (3.5-5.1); SODIUM SERUM 133 mmol/L (136-145); UREA NITROGEN, BLOOD 7 mg/dL (8-21)
[2020-02-12 07:46] LABS: TOTAL IRON BIND. CAPACITY 262 ug/dL (250-450)
[2020-02-12 07:51] LABS: BASOPHILS # (AUTO) 0.1 K/uL (0.0-0.2); BASOPHILS % (AUTO) 0.9 % (0.0-2.0); EOSINOPHILS # (AUTO) 0.2 K/uL (0.0-0.4); EOSINOPHILS % (AUTO) 2.8 % (0.0-4.0); LYMPHOCYTES # (AUTO) 1.5 K/uL (1.0-5.5); LYMPHOCYTES % (AUTO) 24.5 % (20.5-51.5); MEAN CORPUSCULAR HEMOGLOBIN 30 pg (27-31); MEAN CORPUSCULAR HGB CONC 33 % (32-36); MEAN CORPUSCULAR VOLUME 90 fL (79.0-98.0); MONOCYTES # (AUTO) 0.6 K/uL (0.0-1.0); MONOCYTES % (AUTO) 10.3 % (1.7-9.3); NEUTROPHILS # (AUTO) 3.9 K/uL (1.8-7.7); NEUTROPHILS % (AUTO) 61.5 % (40.0-70.0); PLATELET COUNT (AUTO) 373 K/uL (130-430); RED BLOOD CELL COUNT(AUTO) 2.35 MIL/uL (4.2-6.2); RED CELL DISTRIBUTION WIDTH 14.6 % (9.0-15.0); WHITE BLOOD COUNT (AUTO) 6.3 K/uL (4.8-10.8)
[2020-02-12 08:07] LABS: HEMATOCRIT 21.2 % (36-48)
[2020-02-12] MEDS ORDERED: SIMETHICONE 40 MG/0.6 ML ML ONE (08:08)
[2020-02-12] MEDS ORDERED: MEPERIDINE HCL/PF 100 MG/ML AMP ONE (08:09)
[2020-02-12] MEDS ORDERED: MIDAZOLAM HCL 5 MG/5 ML VIAL ONE (08:09)
[2020-02-12] MEDS ORDERED: POTASSIUM CHLORIDE 40 MEQ in NS 250 ML IV ONE (08:30)
[2020-02-12] MEDS: PANTOPRAZOLE SODIUM 40 MG/VIAL (PROTONIX) IVP SCH ×2 (09:08→20:05)
[2020-02-12] MEDS: LACTULOSE 20 GM/30 ML UDC PO SCH ×2 (09:08→20:05)
[2020-02-12] MEDS: MEMANTINE HCL 5 MG TABLET PO SCH ×2 (09:09→20:05)
[2020-02-12] MEDS: NEPHROVITE, (FOLIC ACID/VITAMIN B COMP W-C 1 TAB) PO SCH (09:09)
[2020-02-12] MEDS: CALCIUM CARBONATE/VITAMIN D3 1 TAB TABLET PO SCH (09:09)
[2020-02-12] MEDS: KCL 20 mEq in D5/0.45NS 1000mL 1,000 ML IV SCH (10:44)
[2020-02-12] MEDS: DONEPEZIL HCL 5 MG TABLET (ARICEPT) PO SCH (20:05)
[2020-02-13 00:22] VITALS: BP_SYST 121
[2020-02-13] MEDS: KCL 20 mEq in D5/0.45NS 1000mL 1,000 ML IV SCH ×2 (04:57→12:40)
[2020-02-13 06:17] LABS: BASOPHILS % (AUTO) 0.5 % (0.0-2.0); EOSINOPHILS # (AUTO) 0.2 K/uL (0.0-0.4); EOSINOPHILS % (AUTO) 5.2 % (0.0-4.0); HEMATOCRIT 31.4 % (36-48); HEMOGLOBIN 10.5 g/dL (12.0-16.0); LYMPHOCYTES # (AUTO) 1.1 K/uL (1.0-5.5); LYMPHOCYTES % (AUTO) 24.9 % (20.5-51.5); MEAN CORPUSCULAR HEMOGLOBIN 30 pg (27-31); MEAN CORPUSCULAR HGB CONC 34 % (32-36); MEAN CORPUSCULAR VOLUME 89 fL (79.0-98.0); MONOCYTES # (AUTO) 0.6 K/uL (0.0-1.0); MONOCYTES % (AUTO) 13.2 % (1.7-9.3); NEUTROPHILS # (AUTO) 2.5 K/uL (1.8-7.7); NEUTROPHILS % (AUTO) 56.2 % (40.0-70.0); PLATELET COUNT (AUTO) 307 K/uL (130-430); RED BLOOD CELL COUNT(AUTO) 3.53 MIL/uL (4.2-6.2); RED CELL DISTRIBUTION WIDTH 14.2 % (9.0-15.0); WHITE BLOOD COUNT (AUTO) 4.4 K/uL (4.8-10.8)
[2020-02-13 06:20] LABS: ANION GAP 9 (5-15); CALCIUM 8.3 mg/dL (8.4-11.0); CHLORIDE 106 mmol/L (98-107); CREATININE 0.41 mg/dL (0.55-1.30); GLUCOSE 90 mg/dL (70-99); POTASSIUM 3.7 mmol/L (3.5-5.1); SODIUM SERUM 138 mmol/L (136-145); UREA NITROGEN, BLOOD 8 mg/dL (8-21)
[2020-02-13 08:00] VITALS: BP_SYST 133
[2020-02-13 08:05] LABS: FOLATE (FOLIC ACID) 4.9 ng/mL (>3.0)
[2020-02-13] MEDS: NEPHROVITE, (FOLIC ACID/VITAMIN B COMP W-C 1 TAB) PO SCH (08:27)
[2020-02-13] MEDS: LACTULOSE 20 GM/30 ML UDC PO SCH ×2 (08:27→20:46)
[2020-02-13] MEDS: MEMANTINE HCL 5 MG TABLET PO SCH ×2 (08:27→20:49)
[2020-02-13] MEDS: PANTOPRAZOLE SODIUM 40 MG/VIAL (PROTONIX) IVP SCH ×2 (08:27→20:46)
[2020-02-13] MEDS: CALCIUM CARBONATE/VITAMIN D3 1 TAB TABLET PO SCH (08:27)
[2020-02-13 12:38] VITALS: BP_SYST 116
[2020-02-13 16:11] VITALS: BP_SYST 150
[2020-02-13] MEDS: DONEPEZIL HCL 5 MG TABLET (ARICEPT) PO SCH (20:49)
[2020-02-14] VITALS: BP_SYST 128
[2020-02-14] MEDS: KCL 20 mEq in D5/0.45NS 1000mL 1,000 ML IV SCH (02:08)
[2020-02-14 07:29] LABS: BASOPHILS % (AUTO) 0.6 % (0.0-2.0); EOSINOPHILS # (AUTO) 0.3 K/uL (0.0-0.4); EOSINOPHILS % (AUTO) 4.6 % (0.0-4.0); HEMATOCRIT 32.3 % (36-48); HEMOGLOBIN 10.9 g/dL (12.0-16.0); LYMPHOCYTES # (AUTO) 1.3 K/uL (1.0-5.5); MEAN CORPUSCULAR HEMOGLOBIN 30 pg (27-31); MEAN CORPUSCULAR HGB CONC 34 % (32-36); MEAN CORPUSCULAR VOLUME 90 fL (79.0-98.0); MONOCYTES # (AUTO) 0.7 K/uL (0.0-1.0); MONOCYTES % (AUTO) 12.3 % (1.7-9.3); NEUTROPHILS # (AUTO) 3.4 K/uL (1.8-7.7); NEUTROPHILS % (AUTO) 59.5 % (40.0-70.0); PLATELET COUNT (AUTO) 313 K/uL (130-430); RED CELL DISTRIBUTION WIDTH 14.2 % (9.0-15.0); WHITE BLOOD COUNT (AUTO) 5.8 K/uL (4.8-10.8)
[2020-02-14 07:46] LABS: ANION GAP 8 (5-15); CALCIUM 8.2 mg/dL (8.4-11.0); CHLORIDE 104 mmol/L (98-107); CREATININE 0.39 mg/dL (0.55-1.30); GLUCOSE 92 mg/dL (70-99); POTASSIUM 3.5 mmol/L (3.5-5.1); SODIUM SERUM 135 mmol/L (136-145); UREA NITROGEN, BLOOD 9 mg/dL (8-21)
[2020-02-14 08:00] VITALS: BP_SYST 133
[2020-02-14] MEDS: PANTOPRAZOLE SODIUM 40 MG/VIAL (PROTONIX) IVP SCH (08:44)
[2020-02-14] MEDS: LACTULOSE 20 GM/30 ML UDC PO SCH (08:44)
[2020-02-14] MEDS: MEMANTINE HCL 5 MG TABLET PO SCH (08:45)
[2020-02-14] MEDS: CALCIUM CARBONATE/VITAMIN D3 1 TAB TABLET PO SCH (08:45)
[2020-02-14] MEDS: NEPHROVITE, (FOLIC ACID/VITAMIN B COMP W-C 1 TAB) PO SCH (08:45)
[2020-02-14 12:39] VITALS: BP_SYST 126
[2020-02-14 13:22] VITALS: BP_SYST 133
[2020-02-14 16:12] VITALS: BP_SYST 121
== END 2020-02-14 18:30 | DRG 381 ==
LOC: SED 09:31 → STU 12:09
PROVIDERS: ADMIT Family Medicine; ATTEND Family Medicine
PROC: 0DB58ZX Excision of Esophagus, Via Natural or Artificial Opening Endoscopic, Diagnostic (ICD-10-PCS; 2020-02-12)
PROC: 0DB78ZX Excision of Stomach, Pylorus, Via Natural or Artificial Opening Endoscopic, Diagnostic (ICD-10-PCS; 2020-02-12)
PROC: 30233N1 Transfusion of Nonautologous Red Blood Cells into Peripheral Vein, Percutaneous Approach (ICD-10-PCS; principal; 2020-02-12 08:00)
DX: K22.11 Ulcer of esophagus with bleeding (principal); N17.9 Acute kidney failure, unspecified; E44.0 Moderate protein-calorie malnutrition; Z68.1 Body mass index [BMI] 19.9 or less, adult; Z20.828 Contact with and (suspected) exposure to other viral communicable diseases; K29.70 Gastritis, unspecified, without bleeding; E86.0 Dehydration; F03.90 Unspecified dementia, unspecified severity, without behavioral disturbance, psychotic disturbance, mood disturbance, and anxiety; D64.9 Anemia, unspecified; Z88.6 Allergy status to analgesic agent; Z88.1 Allergy status to other antibiotic agents; Z88.2 Allergy status to sulfonamides
CPT/HCPCS: 36415; 71045; 74018; 80048; 80053; 81000-TC; 82550-TC; 82607; 82728; 82746; 83540-TC; 83550-TC; 83690-TC; 83735-TC; 83880; 84100-TC; 84484; 85025; 85610-TC; 85730-TC; 86886; 86900; 86901; 86920; 87081; 87086; 88305; 88312; 88313; 93005; 96361; 96374; 99291; C9113; G0378; J2175; J2250; J3480; J7030; J7040; J7050; P9021